=== PATIENT | female | born 1970 | race Caucasian/White ===

== ENCOUNTER 2017-08-16 09:23 | Outpatient (CLI) | payer OTHER | END 2017-08-16 09:24 | disposition home or self-care (01) | LOC: SC 09:23 | PROVIDERS: ATTEND Internal Medicine Pulmonary Disease | DX: G47.33 Obstructive sleep apnea (adult) (pediatric) (principal); E11.9 Type 2 diabetes mellitus without complications; F41.9 Anxiety disorder, unspecified; E03.9 Hypothyroidism, unspecified; E78.1 Pure hyperglyceridemia | CPT/HCPCS: 99203; 99212 ==

== ENCOUNTER 2019-05-19 16:16 | Outpatient (CLI) | payer OTHER ==
[2019-05-19 17:51] VITALS: BP 120/68
--- NOTE | 2019-05-19 17:51 | SLEEP CARE CONSULTATION ---
Information from patient questionnaire entered by Ginette Shaw. I have reviewed and concur with the information entered by Ginette Shaw. This document represents the service I personally performed and the decisions made by me, Venita Rob, RN, MSN, LEAD LAYING AND GLUING MACHINE OPERATOR. History of Present Illness Previous diagnosis: Moderate, Obstructive Sleep Apnea-Hypopnea Syndrome AHI: 28 Reason for follow up: first compliance after device update Equipment type: CPAP Equipment obtained from: [employer] Mask style: Nasal (N30i) Mask brand: Resmed Backup mask available: No (keep current mask as a spare) Last cushion change: 10 days ago CPAP Compliance Data - Data Reviewed with Patient Average duration of nightly device use: 6.75 Compliance rate %: 93.3 Current pressure setting (cmH2O): 9-13 Humidity settin Heated hose settin Average residual AHI: 1.5 Average large leak: 0 Subjective Patient concerns: reports: air blowing in eyes (after a couple of days of changing mask cushion despite headgear adjustment. ), mask leak noise (wakes spouse ), dry mouth, nose, throat (waking with dry mouth most mornings - moderate ). denies: aerophagia, mask discomfort, condensation in mask/hose, nasal congestion, epistaxis Observed to snore while using device: No Current pressure setting perceived as: comfortable On therapy, patient: reports: sleeping better, more rested overall (but still fatigued ). denies: drowsiness while driving (aware of symptoms to press puller when long distance driving. ) Initial Clive Sleepiness Scale score: 15 Current Clive Sleepiness Scale score: 14 Allergies and Home Medications Drug allergies reviewed: Yes (percodan, percocet, demerol, morphine, flu shot, Bee Stings) Home medication list reviewed: Yes (no changes ) Allergy and home medication list: Medication Name (generic/name brand) Strength & Dosage Lantus Solostar 100 UNIT/ML Inject 46 units in the morning and evening Metformin HCL 1000mg tab one twice daily Synthroid 50mcg tab one daily Anaprox DS 550mg tab one every 12 hours prn Aspirin 81mg tab one daily Vitamin D3 5000unit one daily Simvastatin 20mg tab one daily Review of Systems Review of systems same as previous: No (hemorroid surgery planned ) Physical Exam Blood Pressure: 120/68 Cuff size: long Heart Rate: 88 O2 Saturation: 96 Height: 5 ft 7.5 in Weight: 246 lb 6.4 oz Body Mass Index: 38.0 BMI Classification: Obese Impression and Plan 1. Obstructive Sleep Apnea-Hypopnea Syndrome, moderate, with good treatment compliance and good apnea control. On CPAP therapy, the patient has better sleep quality and is more rested overall. Oral dryness can be reduced by adjusting humidity setting higher or heated hose lower or by adjusting both settings. Printed instructions given on how to change humidity and heated hose settings with rationale explaining why to change. Patient advised that chronic oral dryness can affect dental health and advised to follow up with dentist. In addition, there are oral dryness products that can be used to reduce dryness such as Biotene products, Dry mouth rinse and Xylomelts. Patient to discuss best option with dentist. To reduce mask leaks into eyes, I showed her my mask samples as she is not due for another mask until August. She chose the Dreamwisp and I fitted her with a medium size cushion. Patient felt this was much more comfortable than present mask. Mask specific RX made for [employer] for replacements of parts. Patient to contact [employer] as well. Mask leaks predominately from when patient sleeps on their side can also be reduced by using a CPAP pillow. A CPAP pillow sample was shown. This and other styles can be purchased online. If continued mask leaks despite above changes, an eye mask cover advised to reduce eye irritation. Patient has lost weight.Currently patients BMI is 38 obesity. Obesity increases the risk of apnea, CPAP pressure requirements and overall health risks especially cardiovascular and diabetes. Thus patient is advised to continue to lose weight. Weight loss can be done with reducing portion size, reducing refined foods and balancing content with vegetables, fruit and protein. In addition tracking food intake will allow awareness of how to modify diet to achieve weight loss goals. Also eating more slowly will allow more awareness of food intake and enjoyment of food while assisting patient to modify intake at each meal. A diet consultation can be helpful in achieving optimal weight loss goals. The BMI chart was reviewed. The patient would like to reduce to 165 pounds bringing their BMI down to about 25- 26. Patient encouraged to discuss their weight loss goals with their PCP and consider a referral to a window and door installer. The patient's CPAP pressure range should accommodate some weight loss. Since she is having surgery tomorrow for hemorroids and will be on pain medication for a couple of weeks. Symptoms to report for additional pressure adjustment discussed. Patient's apnea severity and rationale for treatment to reduce apnea, improve sleep quality and reduce cardiovascular and cerebrovascular events was reviewed. I also reviewed the benefit of consistent device use of CPAP for diabetes, anxiety. * Continue CPAP pressure at 9-13 cmH2O * Try Dreamwisp mask * Implement methods to reduce oral dryness * Try CPAP pillow * Notify me if snoring with mask or feeling that the pressure is too much or too little * Continue to lose weight * Call this office if any problems using CPAP * Return for follow up in 1 year , or sooner if concerns arise Mask provided: Yes Counseling Topics: Spare mask, Weight loss health impact, Discuss weight with PCP Time Spent with Patient (minutes): 42 I spent 100% of this visit face to face with the patient with greater than 50% of this was spent time counseling the patient and coordination of care.
== END 2019-05-19 16:17 | disposition home or self-care (01) ==
LOC: SC 16:16
PROVIDERS: ATTEND Nurse Practitioner Family
DX: G47.33 Obstructive sleep apnea (adult) (pediatric) (principal); E66.9 Obesity, unspecified; Z68.38 Body mass index [BMI] 38.0-38.9, adult
CPT/HCPCS: 99212; 99215

== ENCOUNTER 2019-07-23 15:49 | Outpatient (CLI) | payer OTHER | END 2019-07-23 15:50 | disposition home or self-care (01) | LOC: COV 15:49 | PROVIDERS: ATTEND Family Medicine | DX: R05 Cough (principal); R06.2 Wheezing; M79.10 Myalgia, unspecified site; J02.9 Acute pharyngitis, unspecified | CPT/HCPCS: 81599 ==

== ENCOUNTER 2021-04-19 08:00 | Outpatient (CLI) | payer OTHER | END 2021-04-19 23:59 | LOC: LAB.N 08:00 | PROVIDERS: ATTEND Family Medicine | DX: R05.9 Cough, unspecified (principal); Z20.822 Contact with and (suspected) exposure to COVID-19 ==

== ENCOUNTER 2022-01-18 21:28 | Outpatient (CLI) | payer OTHER | END 2022-01-18 21:29 | disposition left against medical advice (07) | LOC: EMS 21:28 | DX: S80.211A Abrasion, right knee, initial encounter (principal); M25.512 Pain in left shoulder; W01.0XXA Fall on same level from slipping, tripping and stumbling without subsequent striking against object, initial encounter; Y92.524 Gas station as the place of occurrence of the external cause ==